=== PATIENT | female | born 1955 | race Caucasian/White ===

== ENCOUNTER → 2019-05-03 | Outpatient (CLI) | payer OTHER ==
[~2019-05-03] MED LIST: FLAGYL500 MG PO; GLUCOPHAGE500 M1 PO; LEVAQUIN750 M1 PO; LIPITOR20 MG PO; OZEMPIC1 MG/0.75 SQ; ZESTRIL10 MG PO
== END | disposition home or self-care (01) ==
LOC: LAB 08:16
PROVIDERS: Family Medicine
DX: R19.7 Diarrhea, unspecified (principal)